=== PATIENT | female | born 2000 | race Caucasian/White ===

== ENCOUNTER 2024-12-25 17:30 | Emergency (ER) | payer MEDICAID, SELFPAY ==
--- OUTSIDE RECORDS SUMMARY | 2023-11-11 11:32 | XMS_ITS ---
Author Organization [facility] Billing Info Address [address] [place] [address] Care Team Providers Care Link Trainer Maintenance Worker Name Role Phone JEREMY ESCOBEDO Unavailable [phone] REASON FOR VISIT results Encounters Encounter Location Date Provider Diagnosis [id number] [facility] [address] [facility] [address] [place], [place] [id number] 11/11/2023 JEREMY ESCOBEDO Plan Of Treatment No Information Progress Notes * Virgil GARCIADOB:[birth year] (23 yo F)Acc No.[id number]:11/11/2023 Patient: Emma MONTENEGROVirgil :2000 A ge:23 Y S ex:Female Address:[address] [place], [address] * true * Date: Generated for Printi ng/Fagerryg/eTransmitting on: 0 12/25/2024 05:41 PM CDT
--- OUTSIDE RECORDS SUMMARY | 2023-11-17 06:30 | XMS_ITS ---
Author Organization [facility] Billing Info Address [address] [place] [address] Care Team Providers Care Rotary Surface Grinder Name Role Phone JEREMY ESCOBEDO Unavailable [phone] REASON FOR VISIT STI (STD testing) Encounters Encounter Location Date Provider Diagnosis [id number] [address] [facility] [address] [place], [place] [id number] 11/17/2023 JEREMY ESCOBEDO Plan Of Treatment No Information Progress Notes * Virgil MCQUEENDOB:[birth year] (24 yo F)Acc No.[id number]:11/17/2023 PROGRESS NOTE Patient: Emma MONTENEGRO Virgil Eddy Provider: Irineo ESCOBEDO APRN :2000 A ge:23 Y S ex:Female Date:11/17/2023 C HN#:[id number] Address:[address] [place], [place] [id number] Subjective: * Chief Complaints: * 1 . STI (STD testing). * Medical History: Objective: * Vitals: Assessment: Plan: * Treatment: * Care Plan Details* * This progress note has not b een verified nor is it considered complete until locked and signed by the provider. Sign off status: Pending * Provider: Irineo ESCOBEDO APRN Date: 0 11/17/2023 Generated for Ileanai ng/Faxing/eTransmitting on: 0 12/25/2024 05:41 PM CDT
--- OUTSIDE RECORDS SUMMARY | 2023-11-17 10:10 | XMS_ITS ---
Author Organization [facility] Billing Info Address [address] [place] [address] Care Team Providers Care Spanish Language Lecturer Name Role Phone HAROON RAMSEY [phone] Allergies No Known Allergies REASON FOR VISIT Vaginal swab, vaginal discharge possible BV or yeast Medications Medication SIG (Take, Route, Frequency, Duration) Notes Start Date End Date Status Clindamycin Phosphate 2 % as directed Va ginal daily for 7 days 11/17/2023 Active Vital Signs Height 65.5 in 11/17/2023 Weight 109.79 lbs 11/17/2023 BMI 17.99 kg/m2 11/17/2023 Blood pressure systolic 100 mm Hg 11/17/19 24 Blood pressure diastolic 60 mm Hg 024 Heart Rate 101 /min 11/17/2023 Encounters Encounter Location Date Provider Diagnosis [id number] [address] [facility] [address] [place], [place] [id number] 11/17/2023 HAROON RAMSEY Vaginitis N76.0 Assessments Encounter Date Diagnosis (ICD Code) Assessment Notes Treatment Notes Treatment Clinical Notes Section Notes 11/17/2023 Vaginitis (ICD-10 - N76.0) vaginal odor and discharge. Has been treated for BV many times. Wetmt=moc clue cells. Rx Clindamycin gel (has worked in the past), adv Boric acid supps Plan Of Treatment Medication Medication Name Sig Start Date Stop Date Notes Clindamycin Phosphate 2 % as directed Va ginal daily for 7 days 11/17/2023 Next Appt Details Follow Up: prn, Reason: Progress Notes * Virgil MCQUEENDOB:[birth year] (23 yo F)Acc No.[id number]:11/17/2023 PROGRESS NOTE Patient: Virgil HARE Provider: Wei RAMSEY MD :2000 A ge:23 Y S ex:Female Date:11/17/2023 C #:[id number] Address:[address], [facility] [id number] Subjective: * Chief Complaints: * 1 . Vaginal swab. 2. vaginal discharge possible BV or yeast. * Medical History: M edical History Verified. 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 H istory of abnormal pap smears N /A.? control N explanon. S exually active c urrently sexually active. H istory of STDs C hlamydia. L ast menstrual perioddate 12/16/2019, findings abnormal. M enarcheage 15. P eriods 2 periods 1 week appart flow heavy. I rregular periods y es. P ainful periods s evere cramping. P ainful intercourse y es. V aginal discharge or odor n one. * OB History: T otal pregnancies 0 . * Medications: N one * Allergies: N .K.A. Objective: * Vitals: H t: 65.5 in, Ht-cm: 166.37 cm, Wt: 109.79 lbs, Wt-k.8 kg, BMI:17.99, Weight Change: -0.1 kg, Body Surface Area: 1.52, BP:100/60, HR:101. * Examination: G YN: External Genitalia: n ormal. Urethra: m eatus normal. Vagina: n ormal, no lesions, sligh d/c, wet mt=clue cells.? Assessment: * Assessment: 1. V aginitis - N76.0 (Primary) vaginal odor and discharge. Has been treated for BV many times. Wetmt=moc clue cells. Rx Clindamycin gel (has worked in the past), adv Boric acid supps. Plan: * Treatment: * Procedure Codes: Q 0111 Q0111 * Follow Up: p rn * Care Plan Details* * Sign off status: Completed true * Provider: Wei RAMSEY MD Date: 11/17/2023 Generated for Wesley emerson/Neeta/Michael on: 12/25/2024 05:41 PM CDT History and Physical Notes * Examination Category Sub-Category Detail Notes Category Not es WRAPPER AND PRESERVER Vagina: normal, no lesions, sligh d/ c, wet mt=clue cells External Genitalia: normal Urethra: meatus normal
--- OUTSIDE RECORDS SUMMARY | 2023-12-29 10:00 | XMS_ITS ---
Author Organization [facility] Billing Info Address [address] [place] [address] Care Team Providers Care Mapping Technician Name Role Phone HAROON RAMSEY [phone] Allergies No Known Allergies REASON FOR VISIT NEXPLANON REMOVAL, wants ocp's Medications Medication SIG (Take, Route, Frequency, Duration) Notes Start Date End Date Status Clindamycin Phosphate 2 % as directed Va ginal daily for 7 days 11/17/2023 Not-Taking Drospirenone-Ethinyl Estradiol 3-0.02 MG 1 tablet Orally Once a day for 28 days 12/29/2023 Active Vital Signs Height 65.5 in 12/29/2023 Weight 105.82 lbs 12/29/2023 BMI 17.34 kg/m2 12/29/2023 Encounters Encounter Location Date Provider Diagnosis [id number] [address] [facility] [address] [place], [place] [id number] 12/29/2023 HAROON RAMSEY Encounter for Nexplanon removal Z30.46 Assessments Encounter Date Diagnosis (ICD Code) Assessment Notes Treatment Notes Treatment Clinical Notes Section Notes 12/29/2023 Encounter for Nexplanon removal (ICD-10 - Z30.46) Requests Nexplanon removal due to acne. Removed intact. Start SABINE Plan Of Treatment Medication Medication Name Sig Start Date Stop Date Notes Drospirenone-Ethinyl Estradi ol 3-0.02 MG 1 tablet Orally Once a day for 28 days 12/29/2023 Next Appt Details Follow Up: 1 Year, Reason: Procedure Notes * Category Sub-Category Detail Notes Implanted Contraception Consent Consent form signed, risks and benefits explained to patient who states understanding Anesthesia injected 1-2 ml of 1 % lidocaine under skin, at distal end of nii Negative test verified Removal Procedure Reason for removal a cne, nii palpated in the left upper arm, site cleaned with betadine, site was numbed with subcutaneous, lidocaine 1%, skin incised, 1cm, nii removed fully intact Contraception Nexplanon Progress Notes * Virgil MCQUEEN JDOB:[birth year] (23 yo F)Acc No.[id number]:12/29/2023 Patient: Virgil HARE Provider: Wei RAMSEY MD :2000 A ge:23 Y S ex:Female Date:12/29/2023 [facility]#:[id number] Address:[address] [place], [place] [phone] Subjective: * Chief Complaints: * 1 . NEXPLANON REMOVAL. 2. Wants ocp's. * Medical History: M edical History Verified. 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 H istory of abnormal pap smears N /A.? control N explanon. S exually active c urrently sexually active. H istory of STDs C hlamydia. Bautista olsen menstrual perioddate 12/16/2019, findings abnormal. M enarcheage 15. P eriods 2 periods 1 week appart flow heavy. I rregular periods y es. P ainful periods s evere cramping. P ainful intercourse y es. V aginal discharge or odor n one. * OB History: T otal pregnancies 0 . * Surgical History: D enies Past Surgical History. * Hospitalization/Major Diagno stic Procedure: D enies Past Hospitalization. * Family History: M other: alive. F ather: alive. M aternal Grandfather: HTN, cancer, diabetes, kidney disease. M aternal Grandmother: HTN, cancer, diabetes, kidney disease. 3 brother(s) - healthy. . * Social History: A lcohol Use P atient does not use alcohol. T obacco Status P atashwin is a never smoker SECOND HAND SMOKE EXPOSURE. E xercise: YES. Marital Status: Single. Lives with: mother, sibling(s). Personal Safety H as anyone close to you ever threatened to hurt you? N o, H as anyone ever hit, kicked, choked, or hurt you physically? N o, H as anyone ever forced you to have sex? N o, P rovider suspects: N o abuse, D o you wear a seat belt ? Y es. Communication Needs D o you need glasses or contacts to read brochures? N o, D o people frequently tell you that you are not hearing and/or understanding them? N o. H ealth Literacy A re medication labels often written in a way that is easy to read and understand? Y es, D o you have problems completing medical forms because of difficulty understanding the instructions? N o. L iving Environment R eported as: H ouse/Condo/Apartment. A mbulatory Status : i s independant. D rugs: none. Environmental Exposure: none known. Diet: regular. Education/School: has completed, high school 2019. pt wears seatbelt in vehicle. * Medications: N ot-Taking Clindamycin Phosphate 2 % Gel as directed Vaginal daily , Medication List reviewed and reconciled with the patient * Allergies: N .K.A. Objective: * Vitals: H t: 65.5 in, Ht-cm: 166.37 cm, Wt: 105.82 lbs, Wt-k.0 kg, BMI:17.34, Weight Change: -1.8 kg, Body Surface Area: 1.49. Assessment: * Assessment: 1. E ncounter for Nexplanon removal - Z30.46 (Primary) Requests Nexplanon removal d ue to acne. Removed intact. Start SABINE Plan: * Treatment: * Procedures: I mplanted Contraception: Consent C onsent form signed, risks and benefits explained to patient who states understanding. C ontraception N explanon. N egative test?verified. A nesthesia i njected 1-2 ml of 1% lidocaine under skin, at distal end of nii. R emoval Procedure R rajesh for removal acne, nii palpated in the left upper arm, site cleaned with betadine, site was numbed with subcutaneous, lidocaine 1%, skin incised, 1cm, nii removed fully intact. * Procedure Codes: 1981 [address]14 * Follow Up: 1 Year * * Sign off status: Completed true * Provider: Wei RAMSEY MD Date: 12/29/2023 Generated for Wesley emerson/Neeta/Dariuszitting on: 0 12/25/2024 05:41 PM CDT
--- OUTSIDE RECORDS SUMMARY | 2024-03-08 04:30 | XMS_ITS ---
Author Organization [facility] Billing Info Address [address] [place] [address] Care Team Providers Care Med Spa Manager Name Role Phone LILIAM ORDONEZ Unavailable [phone] Allergies No Known Allergies Results Component Value Reference Range Notes HEPATITIS PANEL (Q-[id number]) Reviewed date:03/15/2024 01:18:36 PM Interpretation: Performing Lab:[facility]-[id number] Jacinta [id number] Michael Jensen MD Notes/Report: 0; 0; 0; 0 FASTING:YES FASTING: YES HEPATITIS A AB, TOTAL REACTIVE NON-REACTIVE COMMENT For additional information, please refer to http://AIRVEND/faq/ ECZ748 (This link is being provided for informational/ educational purposes only.) HEPATITIS B SURFACE ANTIBODY QL NON-REACTIVE NON-REACTIVE HEPATITIS B SURFACE ANTIGEN NON-REACTIVE NON-REACTIVE COMMENT For additional information, please refer to http://AIRVEND/faq/ CSR547 (This link is being provided for informational/ educational purposes only.) HEPATITIS B CORE AB TOTAL NON-REACTIVE NON-REACTIVE COMMENT For additional information, please refer to http://AIRVEND/faq/ DOT981 (This link is being provided for informational/ educational purposes only.) HEPATITIS C ANTIBODY NON-REACTIVE NON-REACTIVE HCV antibody was non-reactive. There is no laboratory evidence of HCV infection. In most cases, no further action is required. However, if recent HCV exposure is suspected, a test for HCV RNA (test code 16621) is suggested. For additional information please refer to http://Cebix/faq/ZMX78s7 (This link is being provided for informational/ educational purposes only.) RPR (DX) W/REFL TITER AND CO NFIRMATORY TESTING (Q-[id number]) Reviewed date:03/15/2024 01:18:36 PM Interpretation: Performing Lab:[facility]-[id number] L[address]pez Wilkins, [id number] Michael Jensen MD Notes/Report: 0; 0; 0; 0 FASTING:YES FASTING: YES RPR (DX) W/REFL TITER AND CONFIRMATORY TESTING NON-REACTIVE NON-REACTIVE No laboratory evidence of syphilis. If recent exposure is suspected, submit a new sample in 2-4 weeks. Sexually-Transmitted Infecti ons (STIs)Pelvic Inflammatory Disease(PID)Panel(Q- [id number]) Reviewed date:03/15/2024 01:18:36 PM Interpretation: Performing Lab:[facility],[id number] [id number] Anay Wesley MD,PhD,RED Notes/Report: 0; 0; 0; 0 FASTING:YES FASTING: YES CHLAMYDIA TRACHOMATIS RNA, TMA, UROGENITAL NOT DETECTED NEISSERIA GONORRHOEAE RNA, TMA, UROGENITAL NOT DETECTED TRICHOMONAS VAGINALIS RNA, QL TMA NOT DETECTED MYCOPLASMA GENITALIUM, rRNA, TMA NOT DETECTED ASSAY DETAILS SEE NOTE REFERENCE RANGE: NOT DETECTED For additional information, please refer to https://CollabRx.Peela/faq/GBD632 https://Chooos/faq/Trichom onastma (These links are being provided for informational/ educational purposes only.) HIV-1/2 Antigen and Antibodi es, Fourth Generation, with Reflexes ([id number]) Reviewed date:03/15/2024 01:18:36 PM Interpretation: Performing Lab:[facility]-[id number] L[address]pez Wilkins, [id number] Michael Jensen MD Notes/Report: 0; 0; 0; 0 FASTING:YES FASTING: YES HIV AG/AB, 4TH GEN NON-REACTIVE NON-REACTIVE HIV-1 antigen and HIV-1/HIV-2 antibodies were not detected. There is no laboratory evidence of HIV infection. PLEASE NOTE: This information has been disclosed to you from records whose confidentiality may be protected by state law. If your state requires such protection, then the state law prohibits you from making any further disclosure of the information without the specific written consent of the person to whom it pertains, or as otherwise permitted by law. A general authorization for the release of medical or other information is NOT sufficient for this purpose. For additional information please refer to http://CollabRx.GamingTurf/faq/MDR252 (This link is being provided for informational/ educational purposes only.) The performance of this assay has not been clinically validated in patients less than 2 years old. REASON FOR VISIT STD CONCERNS - OMG PT Medications Medication SIG (Take, Route, Frequency, Duration) Notes Start Date End Date Status Clindamycin Phosphate 2 % as directed Va ginal daily for 7 days 11/17/2023 Not-Taking Drospirenone-Ethinyl Estradiol 3-0.02 MG 1 tablet Orally Once a day for 28 days 12/29/2023 Not-Taking Vital Signs Height 65.5 in 03/08/2024 Weight 98.99 lbs 03/08/2024 BMI 16.22 kg/m2 03/08/2024 Blood pressure systolic 100 mm Hg 03/08/20 24 Blood pressure diastolic 72 mm Hg 024 Temperature 97.4 degrees Fahrenheit 03/08/20 24 Heart Rate 98 /min 03/08/2024 Respiratory Rate 16 /min 03/08/2024 Oximetry 99 03/08/2024 Encounters Encounter Location Date Provider Diagnosis [id number] [address] [address] [place], [place] [id number] 03/08/2024 LILIAM ORDONEZ STD exposure Z20.2 Assessments Encounter Date Diagnosis (ICD Code) Assessment Notes Treatment Notes Treatment Clinical Notes Section Notes 03/08/2024 STD exposure (ICD-10 - Z20.2) Routine STI screening labs ordered. We will call patient with results and treat as indicated. Discussed with patient it was not recommended to do blood screening for herpes without symptoms. Discussed signs and symptoms to watch for. Recommended immediate evaluation should she develop any symptoms that could be considered any type of STI. Also recommended that she follow up with her PCP regarding regular screening recommendations. Safe sex precautions discussed. Questions answered. Patient verbalized understanding. Plan Of Treatment Treatment Notes Assessment Notes STD exposure Routine STI screening labs ordered. We will call patient with results and treat as indicated. Discussed with patient it was not recommended to do blood screening for herpes without symptoms. Discussed signs and symptoms to watch for. Recommended immediate evaluation should she develop any symptoms that could be considered any type of STI. Also recommended that she follow up with her PCP regarding regular screening recommendations. Safe sex precautions discussed. Questions answered. Patient verbalized understanding. Next Appt Details Follow Up: prn, Reason: Progress Notes * Virgil MCQUEEN NunuDOB:[birth year] (23 yo F)Acc No.[id number]:03/08/2024 PROGRESS NOTE Patient: Virgil HARE Provider: Avis ORDONEZ MD :2000 A ge:23 Y S ex:Female Date:03/08/2024 C #:[id number] Address:[address] [place], [place] [id number] Subjective: * Chief Complaints: * S TD CONCERNS - OMG PT * HPI: P atient History: pt wants to be tested for STD due to possible exposure, pt has concerns of herpes See above. Got message that she has had exposure to herpes. She is concerned about other possible STI exposures as well. She is asymptomatic at this time. Unsure LMP but has remained regular. Would use condoms if does become sexually active. Had been starated on SABINE after Nexplanon removal but not currently taking. * ROS: G eneral ROS: Constitutional: N o recent fevers. Has not felt unwell.?. D ermatology/Integumentary: N o rashes or skin changes. . H EENT: N o BARONE's, no runny nose or sore throat. . R danyelle/Pulmonology: N o cough or SOA. G astroenterology: N o abdominal pain, noo N/V/D. G enital/Urinary: N o difficulty w/ urination. No genital rashes or lesions. No pelvic pain. No abnormal vaginal d/c. Last sexual activity 02/02.. M usculoskeletal: N o increased body aches or joint pain. . 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 H istory of abnormal pap smears N /A. B irth control N explanon. S exually active c urrently sexually active. H istory of STDs C hlamydia. L pretty menstrual perioddate 12/16/2019, findings abnormal. M enarcheage 15. P eriods 2 periods 1 week appart flow heavy. I rregular periods y es. P ainful periods s evere cramping. P ainful intercourse y es. V aginal discharge or odor n one. * OB History: T otal pregnancies 0 . * Surgical History: N o Surgical History documented. * Hospitalization/Major Diagno stic Procedure: N o Hospitalization History. * Medications: N ot-TakingClindamycin Phosphate 2 % Gel as directed Vaginal daily Drospirenone- Ethinyl Estradiol 3-0.02 MG Tablet 1 tablet Orally Once a day Medication List reviewed and reconciled with the patientNot-Taking Clindamycin Phosphate 2 % Gel as directed Vaginal daily Not-Taking Drospirenone-Ethinyl Estradiol 3-0.02 MG Tablet 1 tablet Orally Once a day Medication List reviewed and reconciled with the patient * Allergies: N .K.A. Objective: * Vitals: H t: 65.5 in, Ht-cm: 166.37 cm, Wt: 98.99 lbs, Wt-k.9 kg, BMI:16.22, Weight Change: -3.1 kg, Body Surface Area: 1.44, BP:100/72, Temp:97.4F, HR:98, Respiratory Rate:16, Oxygen sat %:99, Pain scale: 0. * Examination: G eneral Examination: Constitutional: a lert, NAD. Derm/Integumentary: n ormal, no rash. HEENT: H ead - NC/AT, PERRL, EOMI. Neck: s upple. Respiratory: r egular breathing rate and effort. Female Genitourinary: d eferred - asymptomatic and patient prefers urine and blood screens. Musculoskeletal: N ormal movements U&LE's. Normal gait.. Neurology: a lert, CN's II-XII grossly intact,, no focal deficits. Psych: a ppropriate mood and affect. Assessment: * Assessment: 1. S TD exposure - Z20.2 (Primary) Plan: * Treatment: * Procedure Codes: * Follow Up: p rn * Care Plan Details* * IS SPECIALIST Sign off status: Completed true * Provider: Avis ORDONEZ MD Date: 1 05/08/2023 Generated for Ileanai ki/Neeta/eTransmitting on: 0 12/25/2024 05:41 PM CDT History and Physical Notes * HPI (History of Present Illness) Category Sub-Category Detail Notes Category Not es Patient History pt wants to be tested for STD due to possible exposure, pt has concerns of herpes See above. Got message that she has had exposure to herpes. She is concerned about other possible STI exposures as well. She is asymptomatic at this time. Unsure LMP but has remained regular. Would use condoms if does become sexually active. Had been starated on SABINE after Nexplanon removal but not currently taking. Examination Category Sub-Category Detail Notes Category Not es General Examination HEENT: Head - NC/AT, PERRL, EOMI Neck: supple Respiratory: regular breathing ra te and effort Constitutional: alert, NAD Derm/Integumentary: normal, no rash Neurology: alert, CN's II-XII g rossly intact,, no focal deficits Female Genitourinary: deferred - asympto matic and patient prefers urine and blood screens Musculoskeletal: Normal movements U&L E's. Normal gait. Psych: appropriate mood and affect
[2024-12-25 17:42] VITALS: BP 110/74; PULSE 87; RESP 18; TEMP 36.7; O2SAT 99; BMI 18.3
--- OUTSIDE RECORDS SUMMARY | 2024-12-25 17:42 | XMS_ITS | Patient Health Record ---
Author Organization [facility] Billing Info Address [address] [place] [address] Care Team Providers Care Plan Consultant Name Role Phone HAROON RAMSEY Unavailable [phone] LILIAM ORDONEZ Unavailable [phone] Allergies No Known Allergies Results Component Value Reference Range Notes HEPATITIS PANEL (Q-6462) Reviewed date:03/15/2024 01:18:36 PM Interpretation: Performing Lab:[facility], [facility]io[address] Zachary [id number] Michael Jensen MD Notes/Report: 0; 0; 0; 0 FASTING:YES FASTING: YES HEPATITIS A AB, TOTAL REACTIVE NON-REACTIVE COMMENT For additional information, please refer to http://[employer]/faq/ CLJ029 (This link is being provided for informational/ educational purposes only.) HEPATITIS B SURFACE ANTIBODY QL NON-REACTIVE NON-REACTIVE HEPATITIS B SURFACE ANTIGEN NON-REACTIVE NON-REACTIVE COMMENT For additional information, please refer to http://[employer]/faq/ VED139 (This link is being provided for informational/ educational purposes only.) HEPATITIS B CORE AB TOTAL NON-REACTIVE NON-REACTIVE COMMENT For additional information, please refer to http://[employer]/faq/ AXH490 (This link is being provided for informational/ educational purposes only.) HEPATITIS C ANTIBODY NON-REACTIVE NON-REACTIVE HCV antibody was non-reactive. There is no laboratory evidence of HCV infection. In most cases, no further action is required. However, if recent HCV exposure is suspected, a test for HCV RNA (test code 65627) is suggested. For additional information please refer to http://[employer].Zipit Wireless/faq/RBH38n0 (This link is being provided for informational/ educational purposes only.) RPR (DX) W/REFL TITER AND CO NFIRMATORY TESTING (Q-17958) Reviewed date:03/15/2024 01:18:36 PM Interpretation: Performing Lab:[facility]-Bprzok[address], JhagsbRO[address] Michael Jensen MD Notes/Report: 0; 0; 0; 0 FASTING:YES FASTING: YES RPR (DX) W/REFL TITER AND CONFIRMATORY TESTING NON-REACTIVE NON-REACTIVE No laboratory evidence of syphilis. If recent exposure is suspected, submit a new sample in 2-4 weeks. Sexually-Transmitted Infecti ons (STIs)Pelvic Inflammatory Disease(PID)Panel(Q- 32186) Reviewed date:03/15/2024 01:18:36 PM Interpretation: Performing Lab:[facility],[address] [facility] Anay Wesley MD,PhD,RED Notes/Report: 0; 0; 0; 0 FASTING:YES FASTING: YES CHLAMYDIA TRACHOMATIS RNA, TMA, UROGENITAL NOT DETECTED NEISSERIA GONORRHOEAE RNA, TMA, UROGENITAL NOT DETECTED TRICHOMONAS VAGINALIS RNA, QL TMA NOT DETECTED MYCOPLASMA GENITALIUM, rRNA, TMA NOT DETECTED ASSAY DETAILS SEE NOTE REFERENCE RANGE: NOT DETECTED For additional information, please refer to https://[employer].FIRE1/faq/NUX625 https://Trendr/faq/Trichom onastma (These links are being provided for informational/ educational purposes only.) HIV-1/2 Antigen and Antibodi es, Fourth Generation, with Reflexes (Q-[id number]) Reviewed date:03/15/2024 01:18:36 PM Interpretation: Performing Lab:[facility]-Lyxuni[address], LlxgckPI[address] Michael Jensen MD Notes/Report: 0; 0; 0; [...] purpose. For additional information please refer to http://[employer]/faq/AKL648 (This link is being provided for informational/ educational purposes only.) The performance of this assay has not been clinically validated in patients less than 2 years old. Reason For Referral No Information Medications Medication SIG (Take, Route, Frequency, Duration) Notes Start Date End Date Status Clindamycin Phosphate 2 % as directed Va ginal daily for 7 days 11/17/2023 Not-Taking Drospirenone-Ethinyl Estradiol 3-0.02 MG 1 tablet Orally Once a day for 28 days 12/29/2023 Not-Taking Immunizations Vaccine Route Administration Date Status Comme nts zMMR Unknown 07/03/2003 Administered zMMR Unknown 12/04/2005 Administered TDAP (ADACEL) IM Intramuscular 11/26/2014 Administered zPNEUMOCOCCAL 7 CONJ (PREVNAR7) Unknown 2001 Administered zPNEUMOCOCCAL 7 CONJ (PREVNAR7) Unknown 03/02/2002 Administered zPNEUMOCOCCAL 7 CONJ (PREVNAR7) Unknown 10/31/2003 Administered HEP A - PED/ADOL, 2 DOSE SERIES (HAVRIX-PEDS) Unknown 12/06/2007 Administered HEP A - PED/ADOL, 2 DOSE SERIES (HAVRIX-PEDS) Unknown 05/27/2010 Administered MENINGOCOCCAL CONJ - MCV4P (MENACTRA) IM Intramuscular 11/10/2018 Administered zINFLUENZA - SPLIT (3YR+) No Preservative Unknown 05/27/2010 Administered DTAP (Past vaccine of unknown type) Unknown 2001 Administered DTAP (Past vaccine of unknown type) Unknown 03/02/2002 Administered DTAP (Past vaccine of unknown type) Unknown 07/03/2003 Administered DTAP (Past vaccine of unknown type) Unknown 10/22/2003 Administered DTAP (Past vaccine of unknown type) Unknown 12/04/2005 Administered HEP B (Past vaccine of unknown type) Unknown 2001 Administered HEP B (Past vaccine of unknown type) Unknown 03/02/2002 Administered HEP B (Past vaccine of unknown type) Unknown 09/12/2002 Administered HIB (Past vaccine of unknown type) Unknown 2001 Administered HIB (Past vaccine of unknown type) Unknown 03/02/2002 Administered HIB (Past vaccine of unknown type) Unknown 09/12/2002 Administered HIB (Past vaccine of unknown type) Unknown 07/03/2003 Administered POLIO (Past vaccine of unknown type) Unknown 2001 Administered POLIO (Past vaccine of unknown type) Unknown 03/02/2002 Administered POLIO (Past vaccine of unknown type) Unknown 09/12/2002 Administered POLIO (Past vaccine of unknown type) Unknown 12/04/2005 Administered VARICELLA (Past vaccine of unknown type) Unknown 07/03/2003 Administered VARICELLA (Past vaccine of unknown type) Unknown 12/06/2007 Administered HPV9 (GARDASIL 9) IM Intramuscular 02/02/2017 Administered HPV9 (GARDASIL 9) IM Intramuscular 11/10/2018 Administered Problems Problem Type SNOMED Code ICD Code Onset Dates Problem Status W/U Status Risk Notes Problem Well child visit (373202973) Well child examination (V20.2) Active confirmed Problem 598698146 Encounter for confirmation of test result with physical examination (Z32.00) Active confirmed Vital Signs Heart Rate 98 /min 03/08/2024 Temperature 97.4 degrees Fahrenheit 03/08/2024 Respiratory Rate 16 /min 03/08/2024 Oximetry 99 03/08/2024 Blood pressure diastolic 72 mm Hg 03/08/2024 Height 65.5 in 03/08/2024 Blood pressure systolic 100 mm Hg 03/08/2024 Weight 98.99 lbs 03/08/2024 BMI 16.22 kg/m2 03/08/2024 Encounters Encounter Location Date Provider Diagnosis [id number] [address] [facility] [address] [place], [place] [id number] 12/29/2023 [id number] [address] [place], [place] [id number] 03/08/2024 LILIAM ORDONEZ STD exposure Z20.2 Assessments Encounter Date Diagnosis (ICD Code) Assessment Notes Treatment Notes Treatment Clinical Notes Section Notes 12/29/2023 Encounter for Nexplanon removal (ICD-10 - Z30.46) Requests Nexplanon removal due to acne. Removed intact. Start SABINE 03/08/2024 STD exposure (ICD-10 - Z20.2) Routine [...] answered. Patient verbalized understanding. Plan Of Treatment Future Test Test Name Order Date Jet, group A ([id number]) 2015 Insurance Providers Payer Name Payer Address Payer Phone Subscriber Number Group Number Insured Name Patient Relationship to Insured Coverage Start Date Coverage End Date [facility] [address] [place], [place] [phone] [id number] Virgil Mcqueen Self - patient is the insured 4 [employer] [place] [employer] [address] [place] [address] [id number] Virgil Mcqueen Self - patient is the insured [facility] KIERSTEN DEMARCO [address] [place], [place] [id number] [id number] Virgil Mcqueen Self - patient is the insured 4 Medications Administered Medication Instructions Date of Administration Dosage Notes CefTRIAXone (Rocephin) 12/24/2017 250 mg Medroxyprogesterone Acetate (Depo Provera) 12/27/2019 150 mg Pt brings in her vial from pharmacy MedroxyPROGESTERone Acetate 11/30/2022 150 mg pt brought in medication from pharmacy, next depo due Feb 15-. MedroxyPROGESTERone Acetate 03/01/2023 150 mg LOT [id number] Medical (General) History Surgical History Surgery Date(Month/Year)
--- NOTE | 2024-12-25 19:42 | XRR_ITS ---
PROCEDURE INFORMATION: Exam: XR Chest Exam date and time: 12/25/2024 7:45 PM Age: 24 years old Clinical indication: Pain; Chest pressure; Additional info: Chest pain intermittent x3 days TECHNIQUE: Imaging protocol: Radiologic exam of the chest. Views: 1 view. COMPARISON: No relevant prior studies available. FINDINGS: Lungs: See Soft tissues finding. Pleural spaces: Unremarkable. No pleural effusion. No pneumothorax. Heart/Mediastinum: Unremarkable. No cardiomegaly. Bones/joints: Unremarkable. Soft tissues: Bilateral lower lobe nipple shadows demonstrated. XR/XR chest 1V portable [id number] IMPRESSION: No acute cardiopulmonary process demonstrated.
--- NOTE | 2024-12-25 19:42 | ECG_ITS ---
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 Measurements Intervals Julian Rate: 81 P: 76 VT: 148 QRS: 95 QRSD: 102 T: -48 QT: 333 QTc: 388 Interpretive Statements SINUS RHYTHM WITH SINUS ARRHYTHMIA BORDERLINE RIGHT AXIS DEVIATION [QRS AXIS > 90] ST DEVIATION AND MODERATE T-WAVE ABNORMALITY, CONSIDER INFERIOR ISCHEMIA [-0.1+ mV T-WAVE IN II/aVF] No previous ECG available for comparison Electronically Signed On 12-26-2024 17:56:03 CDT by Farida Arnold M.D. [email or web address]
[2024-12-25 20:17] VITALS: BP 105/71; PULSE 76; PULSE 88; O2SAT 97; O2SAT 99
--- NOTE | 2024-12-25 20:22 | W.ED.CHESTPA ---
HPI - Chest Pain General: Chief Complaint: Chest Pain Stated Complaint: chest pain x3day Time Seen by Provider: 12/25/24 19:28 History of Present Illness: 24-year-old female history of no significant medical issues, presenting with 3-day history of intermittent stabbing central chest pain, random onset, nonexertional, this evening associated with some nausea and diaphoresis due to the severity, radiates down the left bra line around the flank into the back occasionally, not associated with food intake, no associated with cough or shortness of breath, no legs pain or swelling, no recent travel or immobilization, last menstrual period approximately 1 month ago, no association with stress or anxiety, currently asymptomatic, has tenderness to the chest wall, no recent illnesses or infections, uses vape for nicotine and THC but denies any other drug use. No vomiting or diarrhea, no urinary symptoms Risk Factors: Coronary artery disease risk factors: family history of CAD before age 50 Thoracic aortic dissection risk factors: none Pulmonary embolism risk factors: clotting disorder, history of deep vein thrombosis, immobilization, history of pulmonary embolism, recent surgery, oral contracepetive use, malignancy, morbid obesity, , post- state and presence of IVC filter Related Data Previous Rx's ?Medication ?Instructions ?Recorded ibuprofen 600 mg tablet 600 mg PO Q6H PRN pain #20 tabs 12/25/24 Allergies Allergy/AdvReac Type Severity Reaction Status Date / Time No Known Allergies Allergy Verified 12/25/24 17:44 Physical Exam Const: COMMON NORMALS: no acute distress, patient oriented x3 and healthy appearing HENMT: COMMON NORMALS: normocephalic and atraumatic HEAD & SCALP: normocephalic and atraumatic Eye: COMMON NORMALS: Equal, round and reactive pupils present and EOMs intact bilaterally PUPIL: Yes Equal, round and reactive pupils present Neck/C-Spine: COMMON NORMALS: full ROM and supple Chest: COMMONS NORMALS: normal inspection of the chest, normal palpation of entire chest wall and normal inspection of the breasts CHEST: Yes tenderness (Tenderness to palpation of the left inferior sternum without swelling ) Breast/axilla inspection: Yes normal inspection of the axillae and Yes normal inspection of the breasts BREAST/AXILLA PALPATION: No breast lump Resp: COMMON NORMALS: normal respiratory effort, No retractions, No use of accessory muscles and clear to auscultation bilaterally AUSCULTATION: clear to auscultation bilaterally Cardio: COMMON NORMALS: regular rate, regular rhythm and No murmurs present (Cardio) RATE: regular rate RHYTHM: regular rhythm GI: COMMON NORMALS: Normal to inspection, nondistended, normoactive bowel sounds present, Soft to palpation, non-tender and no masses PALPATION: Yes Soft to palpation Extremity: COMMON NORMALS: normal to inspection and full ROM NARRATIVE EXTREMITY EXAM: No tenderness to palpation of the bilateral calves, no pitting edema, negative Homans' sign Neuro: COMMON NORMALS: patient oriented x3, moves all extremities and no focal motor deficits Psych: COMMON NORMALS: mental status grossly normal, Normal thought process present and cooperative THOUGHT PROCESS: Normal thought process present Skin: COMMON NORMALS: no rashes or lesions noted and no wounds GENERAL SKIN EXAM: no rashes or lesions noted Course Vital Signs: Vital signs: Vital Signs Temperature 98.1 F 12/25/24 17:42 Pulse Rate 66 12/25/24 21:00 Respiratory Rate 18 12/25/24 17:42 Blood Pressure 101/65 12/25/24 21:00 Pulse Oximetry 100 12/25/24 21:00 Oxygen Delivery Me thod Room Air 12/25/24 21:00 MDM - Chest Pain Medical Decision Making Generally healthy 24-year-old female presenting to the emergency department with 3-day history of intermittent paroxysms of stabbing chest pain, 1 episode was associated with nausea and diaphoresis, no specific association with food, no tenderness palpation of the abdomen, currently asymptomatic other than mild tenderness to the chest wall with palpation, suspect costochondritis, PERC negative, low risk heart score with only specific risk factor being family of CAD in her aunt, plan for NSAID, EKG, chest x-ray, cardiac enzyme, anticipate discharge with trial of NSAIDs and return precautions. Less likely differentials such as gastritis, acute cholecystitis, pulmonary embolism, ACS, thoracic aortic dissection, breast malignancy, were all considered but clinically deemed to be very unlikely. Lab Data 12/25/24 20:17 12/25/24 20:17 Radiology Impressions Chest X-Ray 12/25/24 19:42 IMPRESSION: No acute cardiopulmonary process demonstrated. Laboratory Results WBC 7.26 10^3/uL (3.29-11.43) 12/25/24 20:17 RBC 4.86 10^6/uL (3.85-5.65) 12/25/24 20:17 Hgb 14.00 g/dL (11.27-16.99) 12/25/24 20:17 Hct 40.7 % (36-47) 12/25/24 20:17 MCV 83.7 fl (85-98) L 12/25/24 20:17 MCH 28.8 pg (27-33) 12/25/24 20:17 MCHC 34.4 g/dL (30-55) 12/25/24 20:17 RDW 12.4 % (12.1-15.1) 12/25/24 20:17 Plt Count 171 10^3/cmm (157-399) 12/25/24 20:17 MPV 11.0 fL (7.4-10.4) H 12/25/24 20:17 Neut % (Auto) 48.4 % 12/25/24 20:17 Lymph % (Auto) 42.1 % 12/25/24 20:17 [place] % (Auto) 7.6 % 12/25/24 20:17 Eos % (Auto) 1.2 % 12/25/24 20:17 Baso % (Auto) 0.6 % 12/25/24 20:17 Neut # (Auto) 3.51 10^3/uL (1.8-7.7) 12/25/24 20:17 Lymph # (Auto) 3.1 10^3/uL (0.8-4.8) 12/25/24 20:17 [place] # (Auto) 0.6 10^3/uL (0.2-0.9) 12/25/24 20:17 Eos # (Auto) 0.1 10^3/uL (0.0-0.8) 12/25/24 20:17 Baso # (Auto) 0.0 10^3/uL (0.0-0.1) 12/25/24 20:17 Nucleated RBC % (auto) 0 % 12/25/24 20:17 Nucleated RBCs # 0.0 /100WBC 12/25/24 20:17 Sodium 137 mmol/L (136-145) 12/25/24 20:17 Potassium 3.7 mmol/L (3.5-5.1) 12/25/24 20:17 Chloride 100 mmol/L (98-107) 12/25/24 20:17 Carbon Dioxide 23 mmol/L (22-29) 12/25/24 20:17 Anion Gap 17.7 (5-19) 12/25/24 20:17 BUN 10 mg/dL (6-20) 12/25/24 20:17 Creatinine 0.6 mg/dL (0.5-0.9) 12/25/24 20:17 GFR Calculation 123.9 mL/min (90-130) 12/25/24 20:17 Glucose 99 mg/dL (65-115) 12/25/24 20:17 Calculated Osmolality 283 mOsm/kg (285-295) L 12/25/24 20:17 Calcium 9.6 mg/dL (8.5-10.5) 12/25/24 20:17 Total Bilirubin 0.6 mg/dL (0.15-1.2) 12/25/24 20:17 AST 16 U/L (0-32) 12/25/24 20:17 ALT 10 U/L (0-33) 12/25/24 20:17 Alkaline Phosphatase 66 U/L (35-105) 12/25/24 20:17 Troponin T Baseline < 6 ng/L (0-10) 12/25/24 20:17 Total Protein 7.0 g/dL (6.6-8.7) 12/25/24 20:17 Albumin 4.6 g/dL (3.5-5.2) 12/25/24 20:17 Globulin 2.4 g/dL (1.3-4.6) 12/25/24 20:17 Lipase 26 U/L (13-60) 12/25/24 20:17 HCG, Qual Negative (Negative) 12/25/24 20:15 All radiology interpretation(s) finalized by discharge ED provider radiology interpretation(s): Chest x-ray independently interpreted by myself is negative for pneumonia or pneumothorax EKG Data EKG 1: I personally reviewed and interpreted this EKG as follows: EKG interpretation date: 12/25/24 EKG interpretation time: 17:39 Interpretation: Sinus rhythm with sinus arrhythmia at 81 bpm, borderline right axis deviation, T wave inversion inferior, no STEMI, QTc 370 ms Clincial Decision Support The following clinical decision support tools were used to aid in care of the patient HEART Score -> History: Slightly Suspicous, EKG: Normal, Age: Less than 45 yrs, Risk Factors: 1 or 2 Risk Factors, Troponin: Baseline Trop <16 ng/L. Resulting HEART Score: 1. Discharge Plan Discharge Patient Disposition: Home Clinical Impression: Atypical chest pain Condition: Stable Prescriptions: New ibuprofen 600 mg tablet 600 mg PO Q6H PRN (Reason: pain) Qty: 20 0RF Discharge Orders: Discharge ED (Routine); Ordered 12/25/24 Ordered By: Adan Ramírez Patient Instructions: Patient Portal & Irene Instructions, Chest Wall Pain (ED) Print Language: Indonesian Coding Level of Care Code ED Major General for Juan Easley
[2024-12-25 20:35] LABS: Hematocrit 40.7 % (36-47); Hemoglobin 14.00 g/dL (11.27-16.99); Mean Corpuscular HGB Conc 34.4 g/dL (30-55); Mean Corpuscular Hemoglobin 28.8 pg (27-33); Mean Corpuscular Volume 83.7 fl (85-98); Nucleated Red Blood Cells % 0 %; Platelet Count 171 10^3/cmm (157-399); Red Blood Count 4.86 10^6/uL (3.85-5.65); White Blood Count 7.26 10^3/uL (3.29-11.43)
[2024-12-25 20:48] LABS: HCG Qualitative Urine. Negative (Negative)
[2024-12-25 20:55] LABS: Alanine Aminotransferase 10 U/L (0-33); Albumin Level 4.6 g/dL (3.5-5.2); Alkaline Phosphatase 66 U/L (35-105); Anion Gap 17.7 (5-19); Aspartate Amino Transferase 16 U/L (0-32); Blood Urea Nitrogen 10 mg/dL (6-20); Calcium 9.6 mg/dL (8.5-10.5); Carbon Dioxide 23 mmol/L (22-29); Chloride 100 mmol/L (98-107); Creatinine Clr Calc Pharmacy 124.6762; Globulin 2.4 g/dL (1.3-4.6); Glucose 99 mg/dL (65-115); Lipase 26 U/L (13-60); Osmolality Calculated 283 mOsm/kg (285-295); Potassium 3.7 mmol/L (3.5-5.1); Sodium 137 mmol/L (136-145); Total Protein 7.0 g/dL (6.6-8.7)
[2024-12-25 20:56] LABS: Troponin(5th) Baseline < 6 ng/L (0-10)
[2024-12-25 21:00] VITALS: BP 101/65; PULSE 66; O2SAT 100
== END 2024-12-25 21:50 | disposition home or self-care (01) ==
PROVIDERS: Emergency Provider Student in an Organized Health Care Education/Training Program
DX: R07.89 Other chest pain (principal)
CPT/HCPCS: 36415; 71045; 80053; 81025; 83690; 84484; 85025; 93005; 96374; 99285; J1885